=== PATIENT | male | born 1960 | race Caucasian/White ===

== ENCOUNTER 2021-01-25 20:54 | Emergency (ER) | payer OTHER ==
[2021-01-25] MEDS ORDERED: Sodium Chloride 0.9% 1,000 ML IV ONE (21:02)
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
[2021-01-25] MEDS ORDERED: Iopamidol 612 MG/ML 100 ML Bottle IVPUSH ONE (21:16)
[2021-01-25] MEDS ORDERED: Iopamidol 612 MG/ML 50 ML SDV IVPUSH ONE (21:16)
[2021-01-25] MEDS ORDERED: Sodium Chloride 0.9% 10 ML Syringe FLUSH SCH (21:30)
[2021-01-26] MEDS ORDERED: Bupivacaine 0.5% 10 ML SDV INJECT ONE (01:12)
[2021-01-26] MEDS ORDERED: Lidocaine 1% with EPINEPHrine 1:100,000 10 ML MDV INJECT ONE (01:19)
[2021-01-26] MEDS ORDERED: Lidocaine 1% with EPINEPHrine 1:100,000 10 ML MDV ONE (01:22)
--- NOTE | 2021-01-26 06:07 | CT ---
Head CT Technique: Multiple axial sections through the brain were obtained. Intravenous contrast was not utilized. Reconstructed coronal and sagittal images were obtained. Comparison: No prior intracranial imaging is available. Findings: There is a calcification being seen which on coronal images is next to the cerebellar tentorium on the left side compatible with benign etiology. Ventricles along with basal cisterns and sulci over the convexities are within normal limits. No abnormal parenchymal densities are seen. No evidence of intracranial hemorrhage. No midline shift or mass-effect is seen. Very slight soft tissue swelling seen around the right orbit with soft tissue injury. No acute calvarial abnormality is appreciated. Impression: 1. Soft tissue swelling and soft tissue injury around the right orbit. 2. Small calcification believed to represent benign finding next to the cerebellar tentorium on the left side. This does not represent hemorrhage. 3. Nothing acute is otherwise seen on noncontrast head CT study. Diagnostic code #3 I slightly disagree with preliminary report from [facility], finalized on 01/25/21, 11:35 PM CDT, code 2
--- NOTE | 2021-01-26 06:10 | CT ---
CT cervical spine Technique: Multiple axial sections were obtained from both C1 inferiorly through T2. Reconstructed coronal and sagittal images were obtained. Comparison: No prior cervical spine imaging is available. Findings: Degenerative change is noted at the junction of the dens and anterior arch of C1. I see no definite acute fracture. Minimal soft tissue calcification is seen within the posterior transverse ligament which is degenerative in etiology. Mild spondylolisthesis is noted at C3-4 compatible with degenerative apophyseal change. Minimal disc space narrowing is noted at C3-4. Moderate disc space narrowing is noted at C4-5. Severe disc space narrowing is noted at C5-6 and C6-7. Anterior osteophytes are seen at C4-5 and more prominent at C5-6 and C6-7. Mild posterior osteophytes are noted at C5-6 and C6-7. Diffuse degenerative apophyseal change is seen throughout the cervical spine. Mild neural foraminal stenosis is noted C3-4 on the left side with moderate right-sided neural foraminal stenosis at C3-4. Mild right-sided neural foraminal stenosis noted at C5-6. Moderate bilateral neural foraminal stenosis is noted at C6-7. No central canal stenosis is seen. No definite acute fracture or acute subluxation is seen. Impression: 1. Diffuse degenerative change as noted above. 2. No acute fracture is seen. Diagnostic code #2 I mildly disagree with preliminary report from [facility], finalized on 01/25/21, 11:14 PM CDT, code 2
--- NOTE | 2021-01-26 06:24 | CT ---
CT chest Technique: Multiple axial sections were obtained from above the lung apices inferiorly through the lung bases. Intravenous contrast was utilized. Reconstructed coronal and sagittal images were obtained. Comparison: No prior chest imaging is available. Findings: Minimal nondisplaced fractures are noted within the right lateral eighth and ninth ribs. No other acute osseous finding is appreciated. Mild degenerative change is noted within the lower thoracic spine. Thoracic aorta shows no aneurysm. No mediastinal adenopathy is seen. No axillary adenopathy is noted. No pericardial thickening is seen. Lung window settings were reviewed which show no acute pulmonary change. No pleural effusions are noted. No pneumothorax is seen. Impression: 1. Nondisplaced fractures within the lateral right eighth and ninth ribs. 2. No additional abnormality is appreciated on CT study of the chest. Diagnostic code #3 I agree with preliminary report from [facility], finalized on 01/25/21, 10:43 PM CDT, code 1 CT abdomen and pelvis Technique: Multiple axial sections were obtained from above the dome of the diaphragm inferiorly through the pubic symphysis. Intravenous contrast was utilized. Reconstructed coronal and sagittal images were obtained. Delayed images were also obtained through the abdomen and pelvis. Comparison: No prior abdomen and pelvis imaging is available. Findings: Visualized lung bases are clear. Liver contains no focal abnormality. Gallbladder contains no calcified gallstones. Spleen is normal. Minimal nodule is noted within the left adrenal gland which is believed to be incidental. Right adrenal gland is normal. Pancreas shows no focal abnormality. Small low density findings are seen within both kidneys most likely representing minimal cysts measuring less than 1 cm. Abdominal aorta shows no aneurysm. No retroperitoneal adenopathy is seen. Small fat-containing umbilical hernia is noted. No pelvic mass or adenopathy is appreciated. Delayed images show contrast excreted from both kidneys into nondilated ureters. Contrast is also noted within the bladder. Bone window settings were reviewed which show scattered degenerative change within the spine. Scattered areas of disc space with vacuum phenomena are noted. Vacuum phenomena is also noted within the sacroiliac joints. Minimal lucency is seen within the inferior left pubic ramus which I believe is most likely artifact and does not represent a discrete fracture. Impression: 1. Diffuse degenerative change within the spine. Small abnormality within the inferior left pubic ramus which I believe is not a fracture. 2. Other findings as noted above. Nothing acute is appreciated on CT study of the abdomen and pelvis. Diagnostic code #2 I questionably disagree with preliminary report from [facility], finalized on 01/25/21, 10:46 PM CDT, code 2
== END 2021-01-26 07:12 | disposition home or self-care (01) ==
LOC: JD.ED 20:54
DX: S22.41XA Multiple fractures of ribs, right side, initial encounter for closed fracture (principal); S01.111A Laceration without foreign body of right eyelid and periocular area, initial encounter; F10.129 Alcohol abuse with intoxication, unspecified; F17.200 Nicotine dependence, unspecified, uncomplicated; Y90.8 Blood alcohol level of 240 mg/100 ml or more; V58.5XXA Driver of pick-up truck or van injured in noncollision transport accident in traffic accident, initial encounter
CPT/HCPCS: 12013; 36415; 70450; 71260; 72125; 74177; 80053; 80306; 80307; 83735; 85007; 85027; 85610; 85730; 93005; 99285; J3490; Q9967; 93010

== ENCOUNTER 2022-01-27 09:28 | Day surgery (SDC) | payer SELFPAY ==
[2022-01-27] MEDS ORDERED: Lactated Ringers 1,000 ML IV ONE (10:00)
[2022-01-27] MEDS ORDERED: Propofol 200 MG/20 ML SDV ONE (11:19)
[2022-01-27] MEDS ORDERED: Lidocaine 1% 4 ML ONE (11:20)
[2022-01-27] MEDS ORDERED: fentaNYL 250 MCG/5 ML SDV ONE (11:20)
[2022-01-27] MEDS ORDERED: Dexamethasone 4 MG/ML SDV ONE (11:20)
[2022-01-27] MEDS ORDERED: Midazolam 1 MG/ML 2 ML SDV ONE (11:20)
[2022-01-27] MEDS ORDERED: Ondansetron 4 MG/2 ML SDV ONE (11:20)
[2022-01-27] MEDS ORDERED: Rocuronium 50 MG/5 ML Vial ONE (11:23)
[2022-01-27] MEDS ORDERED: Sugammadex Sodium 200 MG/2 ML VIAL ONE (11:31)
[2022-01-27] MEDS ORDERED: Lactated Ringers 1,000 ML ONE (11:53)
[2022-01-27] MEDS ORDERED: HYDROmorphone 0.5 MG/0.5 ML Syringe IVPUSH PRN (12:10)
[2022-01-27] MEDS ORDERED: Ondansetron 4 MG/2 ML SDV IVPUSH PRN (12:10)
[2022-01-27] MEDS ORDERED: fentaNYL 100 MCG/2 ML SDV IVPUSH PRN (12:10)
[2022-01-27] MEDS ORDERED: ePHEDrine 50 MG/ML SDV ONE (12:14)
== END 2022-01-27 14:17 | disposition home or self-care (01) ==
LOC: JD.ED 09:28 → JD.SDS 10:44
PROVIDERS: ATTEND Surgery
DX: K20.90 Esophagitis, unspecified without bleeding (principal); K31.7 Polyp of stomach and duodenum; K22.89 Other specified disease of esophagus; T18.128A Food in esophagus causing other injury, initial encounter; F17.210 Nicotine dependence, cigarettes, uncomplicated
CPT/HCPCS: 43247; 43249; 99284; J1100; J2250; J2704; J3010; J3490; J7120; 00731; J2405